=== PATIENT | male | born 1985 | race Caucasian/White ===

== ENCOUNTER 2020-10-15 21:00 | Emergency (ER) | payer OTHER ==
[~2020-10-15] VITALS: Ht 177.8 cm; Wt 86.2 kg
[2020-10-15] MEDS ORDERED: Benadryl 50 mg50 MG PO (22:38)
[2020-10-15] MEDS ORDERED: METPRE4DP PO (22:38)
== END 2020-10-15 22:45 | disposition home or self-care (01) ==
LOC: ER 21:00
DX: L23.7 Allergic contact dermatitis due to plants, except food (principal)
CPT/HCPCS: 99283; A9270; J1100